=== PATIENT | female | born 1975 | race Caucasian/White ===

== ENCOUNTER → 2017-07-03 | Outpatient (CLI) | payer OTHER, BC | LOC: RAD 14:23 | DX: M25.511 Pain in right shoulder (principal) ==

== ENCOUNTER → 2018-08-22 | Outpatient (CLI) | payer OTHER | LOC: RAD 14:04 | DX: Z12.31 Encounter for screening mammogram for malignant neoplasm of breast (principal) ==

== ENCOUNTER → 2018-08-27 | Outpatient (CLI) | payer OTHER | LOC: BC 03:17 | DX: N63.14 Unspecified lump in the right breast, lower inner quadrant (principal); R92.2 Inconclusive mammogram ==

== ENCOUNTER → 2019-04-15 | Outpatient (CLI) | payer OTHER | LOC: BC 12:56 | DX: N60.02 Solitary cyst of left breast (principal); N63.23 Unspecified lump in the left breast, lower outer quadrant ==

== ENCOUNTER → 2019-11-22 | Outpatient (CLI) | payer OTHER | LOC: RAD 10:33 | DX: N60.02 Solitary cyst of left breast (principal) ==

== ENCOUNTER → 2020-01-09 | Outpatient (CLI) | payer OTHER | LOC: ULTRA 11:44 | DX: N60.02 Solitary cyst of left breast (principal) ==

== ENCOUNTER → 2020-05-27 | Outpatient (CLI) | payer OTHER | LOC: LAB 08:26 | PROVIDERS: ATTEND Family Medicine | DX: Z20.828 Contact with and (suspected) exposure to other viral communicable diseases (principal); R21 Rash and other nonspecific skin eruption ==